=== PATIENT | female | born 1990 | race Two or more races ===

== ENCOUNTER 2022-06-01 08:45 | Emergency (ER) | payer BC, OTHER ==
[~2022-06-01] VITALS: Ht 162.6 cm; Wt 65.1 kg
[2022-06-01] MEDS ORDERED: methylPREDNISolone SOD SUCC 125 MG/2 ML VL IM ONE (11:00)
[2022-06-01] MEDS ORDERED: KETOROLAC TROMETH 60MG/2ML VIAL IM ONE (11:00)
[2022-06-01] MEDS ORDERED: MELO7.5T9 PO (11:03)
[2022-06-01] MEDS ORDERED: PRED20TA2 PO (11:03)
[2022-06-01 11:21] VITALS: BP 106/75
== END 2022-06-01 11:25 | disposition home or self-care (01) ==
LOC: ER 08:45
DX: M06.831 Other specified rheumatoid arthritis, right wrist (principal); M19.90 Unspecified osteoarthritis, unspecified site
CPT/HCPCS: 96372; 99284; J1885; J2930